=== PATIENT | male | born 1970 | race Caucasian/White ===

== ENCOUNTER 2016-09-07 15:06 | Emergency (ER) | payer OTHER | END 2016-09-07 16:02 | disposition home or self-care (01) | LOC: ER1 15:06 | DX: J11.1 Influenza due to unidentified influenza virus with other respiratory manifestations (principal); I10 Essential (primary) hypertension; M54.5 Low back pain; G89.29 Other chronic pain; E78.5 Hyperlipidemia, unspecified; Z88.8 Allergy status to other drugs, medicaments and biological substances; Z79.899 Other long term (current) drug therapy | CPT/HCPCS: 87081; 87880; 99283 ==

== ENCOUNTER 2016-11-07 22:15 | Emergency (ER) | payer OTHER | END 2016-11-08 02:00 | disposition left against medical advice (07) | LOC: ER1 22:15 | DX: Z53.21 Procedure and treatment not carried out due to patient leaving prior to being seen by health care provider (principal) ==

== ENCOUNTER 2016-11-08 07:52 | Emergency (ER) | payer OTHER ==
[2016-11-08 10:28] LABS: HEMOGLOBIN 13.9 gm/dl (14.0-17.5); WHITE BLOOD COUNT 6.9 K/UL (4.5-11.0)
[2016-11-08 10:53] LABS: BUN/CREATININE RATIO 11 (0-10)
== END 2016-11-08 13:25 | disposition home or self-care (01) ==
LOC: ER1 07:52
PROVIDERS: Physician Assistant
DX: R10.9 Unspecified abdominal pain (principal); R11.0 Nausea; R19.7 Diarrhea, unspecified; E11.9 Type 2 diabetes mellitus without complications; I10 Essential (primary) hypertension; E78.5 Hyperlipidemia, unspecified; F41.9 Anxiety disorder, unspecified; Z88.8 Allergy status to other drugs, medicaments and biological substances; Z79.84 Long term (current) use of oral hypoglycemic drugs
CPT/HCPCS: 36415; 80053; 81001; 82150; 83690; 84484; 85025; 93005; 96374; 96375; 99284; J2270; J2405; J7050; Q9962

== ENCOUNTER 2016-11-09 08:58 | Emergency (ER) | payer OTHER ==
[2016-11-09 10:44] LABS: HEMOGLOBIN 13.9 gm/dl (14.0-17.5); RED BLOOD COUNT 4.95 M/UL (4.20-5.50); WHITE BLOOD COUNT 7.4 K/UL (4.5-11.0)
[2016-11-09 10:56] LABS: BUN/CREATININE RATIO 9 (0-10)
== END 2016-11-09 16:45 | disposition home or self-care (01) ==
LOC: ER1 08:58
PROVIDERS: Family Medicine
DX: R10.11 Right upper quadrant pain (principal); R10.33 Periumbilical pain; M54.2 Cervicalgia; M54.9 Dorsalgia, unspecified; G89.29 Other chronic pain; Z79.891 Long term (current) use of opiate analgesic; Z88.8 Allergy status to other drugs, medicaments and biological substances; Z79.899 Other long term (current) drug therapy
CPT/HCPCS: 36415; 80053; 83605; 83690; 85025; 99284; J7050; Q9962

== ENCOUNTER 2016-11-15 20:26 | Emergency (ER) | payer OTHER ==
[2016-11-16 03:01] LABS: HEMOGLOBIN 14.3 gm/dl (14.0-17.5); RED BLOOD COUNT 5.07 M/UL (4.20-5.50); WHITE BLOOD COUNT 8.7 K/UL (4.5-11.0)
[2016-11-16 03:07] LABS: BUN/CREATININE RATIO 14 (0-10)
== END 2016-11-16 04:10 | disposition home or self-care (01) ==
LOC: ER1 20:26
PROVIDERS: Student in an Organized Health Care Education/Training Program
DX: K80.50 Calculus of bile duct without cholangitis or cholecystitis without obstruction (principal); I10 Essential (primary) hypertension; G89.29 Other chronic pain; Z88.8 Allergy status to other drugs, medicaments and biological substances; Z79.899 Other long term (current) drug therapy
CPT/HCPCS: 36415; 80053; 81001; 83690; 85025; 87086; 99284

== ENCOUNTER → 2017-01-04 | Outpatient (CLI) | payer OTHER | LOC: RAD 16:45 | DX: M54.2 Cervicalgia (principal); G89.29 Other chronic pain; M54.5 Low back pain; G43.909 Migraine, unspecified, not intractable, without status migrainosus; E78.5 Hyperlipidemia, unspecified; I10 Essential (primary) hypertension; R53.83 Other fatigue; E23.0 Hypopituitarism; F32.9 Major depressive disorder, single episode, unspecified; R94.6 Abnormal results of thyroid function studies; K64.4 Residual hemorrhoidal skin tags; F41.0 Panic disorder [episodic paroxysmal anxiety]; E11.9 Type 2 diabetes mellitus without complications; M47.896 Other spondylosis, lumbar region; M51.36 Other intervertebral disc degeneration, lumbar region; M50.30 Other cervical disc degeneration, unspecified cervical region | CPT/HCPCS: 72050; 72110 ==

== ENCOUNTER 2020-12-18 22:29 | Emergency (ER) | payer OTHER ==
[~2020-12-18 22:29] MED LIST: FELDENE10 MG PO; FLEXERIL 10 MG10 MG PO; IBUPROFEN800 MG PO; INDOCIN 50 MG C50 MG PO; PREDNISONE 50 M50 MG PO; Voltaren Gel 1 %
[2020-12-19 00:35] LABS: HEMOGLOBIN 14.9 gm/dl (14.0-17.5); RED BLOOD COUNT 5.16 M/UL (4.20-5.50); WHITE BLOOD COUNT 8.1 K/UL (4.5-11.0)
[2020-12-19 01:02] LABS: BUN/CREATININE RATIO 16 (0-10)
[2020-12-19] MEDS ORDERED: [UNRECOGNIZED DRUG - REMARK] (01:39)
[2020-12-19] MEDS ORDERED: ASPIRIN CHEWABL81 MG PO (11:31)
== END 2020-12-19 02:01 | disposition home or self-care (01) ==
LOC: ER1 22:29
PROVIDERS: Family Medicine
DX: I82.621 Acute embolism and thrombosis of deep veins of right upper extremity (principal); I10 Essential (primary) hypertension; E11.9 Type 2 diabetes mellitus without complications
CPT/HCPCS: 80053; 85025; 85379; 85610; 99283

== ENCOUNTER 2020-12-19 10:38 | Emergency (ER) | payer OTHER ==
[~2020-12-19 10:38] MED LIST changes: -ASPIRIN CHEWABL81 MG PO
[2020-12-19 11:00] LABS: HEMOGLOBIN 15.5 gm/dl (14.0-17.5); RED BLOOD COUNT 5.32 M/UL (4.20-5.50); WHITE BLOOD COUNT 8.9 K/UL (4.5-11.0)
[2020-12-19 11:28] LABS: BUN/CREATININE RATIO 18 (0-10)
[2020-12-19] MEDS ORDERED: ASPIRIN CHEWABL81 MG PO (11:31)
== END 2020-12-19 11:50 | disposition home or self-care (01) ==
LOC: ER1 10:38
PROVIDERS: Emergency Medicine
DX: I82.622 Acute embolism and thrombosis of deep veins of left upper extremity (principal)
CPT/HCPCS: 80053; 82550; 82553; 83874; 84484; 85025; 85610; 85730; 93005; 93971; 99283

== ENCOUNTER → 2020-12-19 | Outpatient (CLI) | payer OTHER ==
[~2020-12-19] MED LIST changes: +ASPIRIN CHEWABL81 MG PO; +[UNRECOGNIZED DRUG - REMARK]
== END ==
LOC: US 10:04
DX: M79.601 Pain in right arm (principal); M79.89 Other specified soft tissue disorders; I82.611 Acute embolism and thrombosis of superficial veins of right upper extremity
CPT/HCPCS: 93971

== ENCOUNTER 2021-12-19 15:29 | Emergency (ER) | payer OTHER ==
[~2021-12-19 15:29] MED LIST changes: +ASPIRIN CHEWABL81 MG PO
== END 2021-12-19 16:21 | disposition left against medical advice (07) ==
LOC: ER1 15:29
DX: Z53.21 Procedure and treatment not carried out due to patient leaving prior to being seen by health care provider (principal)